=== PATIENT | male | born 1945 ===

== ENCOUNTER 2016-12-03 12:47 | Inpatient (IN) | payer OTHER ==
[~2016-12-03] VITALS: Ht 175.3 cm; Wt 72.6 kg
[2016-12-03 15:10] VITALS: BP 85/50
[2016-12-03 22:27] VITALS: BP 72/44
[2016-12-04 06:21] VITALS: BP 82/49
[2016-12-04 10:00] VITALS: BP 71/42
[2016-12-04 14:00] VITALS: BP 85/44
[2016-12-04 18:19] VITALS: BP 78/46
[2016-12-04 22:33] VITALS: BP 92/48
[2016-12-05 06:32] VITALS: BP 82/41
[2016-12-05 09:31] VITALS: BP 78/42
[2016-12-05 13:12] VITALS: BP 76/40
[2016-12-05 18:18] VITALS: BP 76/41
[2016-12-05 22:03] VITALS: BP 81/41
[2016-12-06 06:12] VITALS: BP 88/52
[2016-12-06 08:30] VITALS: BP 86/50
[2016-12-06 14:10] VITALS: BP 84/48
[2016-12-06 17:31] VITALS: BP 98/46
[2016-12-06 22:29] VITALS: BP 82/41
[2016-12-07 06:53] VITALS: BP 76/47
[2016-12-07 07:40] VITALS: BP 81/49
[2016-12-07 14:52] VITALS: BP 80/46
[2016-12-07 15:02] VITALS: BP 80/46
== END 2016-12-07 17:45 | disposition hospice, home (50) | DRG 296 ==
LOC: ED 12:47 → MU 13:47 → DU 13:47 → MU 14:51 → DU 12-04 10:03
PROVIDERS: ADMIT Family Medicine
DX: I46.9 Cardiac arrest, cause unspecified (principal); I50.43 Acute on chronic combined systolic (congestive) and diastolic (congestive) heart failure; I69.354 Hemiplegia and hemiparesis following cerebral infarction affecting left non-dominant side; I25.10 Atherosclerotic heart disease of native coronary artery without angina pectoris; Z66 Do not resuscitate; Z51.5 Encounter for palliative care; Z68.23 Body mass index [BMI] 23.0-23.9, adult; Z95.1 Presence of aortocoronary bypass graft; Z87.891 Personal history of nicotine dependence; Z95.810 Presence of automatic (implantable) cardiac defibrillator
CPT/HCPCS: 82962; J0171; J1885; J1940; J2060; J2270; J7030; J7050